=== PATIENT | female | born 1940 | race Caucasian/White ===

== ENCOUNTER 2016-09-26 16:12 | Emergency (ER) | payer OTHER ==
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
[~2016-09-26 16:12] MED LIST: ALBUTEROL17 GM INH; CHOLESTEROL MED PO; THYROID MED PO; [UNRECOGNIZED DRUG - OTHER] INH
== END 2016-09-26 17:30 | disposition home or self-care (01) ==
LOC: CED 16:12
DX: S00.83XA Contusion of other part of head, initial encounter (principal); V49.50XA Passenger injured in collision with unspecified motor vehicles in traffic accident, initial encounter; Y92.488 Other paved roadways as the place of occurrence of the external cause
CPT/HCPCS: 70450; 72125; 99284